=== PATIENT | female | born 1965 | race Caucasian/White ===

== ENCOUNTER 2018-11-06 21:00 | Emergency (ER) | payer MEDICARE ==
[~2018-11-06] VITALS: Ht 172.7 cm; Wt 115.0 kg
[~2018-11-06 21:00] MED LIST: BUPR100T6 PO; CHLORPROMAZINE 50 MG PO; DIAZ10TA PO; DULO60CA7 PO; ONDA4TAB7 PO; QUET400T4 PO; TOPI100T24 PO; ZOLP12.52 PO
--- NOTE | 2018-11-06 21:10 | NUR ---
BIB BY [facility] FOR INTERMITTENT EPIGASTRIC PAIN W/ NAUSEA X 12 HOURS. REPORTS HX OF "STOMACH ULCERS." [facility] PLACED PIV GAVE 300ML NS FOR B/P OF 80/50 AND 50MCG FENTANYL. ON ARRIVAL APPEARS WELL. B/P 105/60 REPORTS THIS IS HER BASELINE. RATES PAIN 6/10. HX OF JUANA/APPY/HYSTERECTOMY
[2018-11-06] MEDS ORDERED: ONDANSETRON 2MG/ML, 2ML IVPush ONE (21:30)
[2018-11-06] MEDS ORDERED: MORPHINE SULFATE 4 MG/ML, 1ML IVPush PRN (21:30)
--- NOTE | 2018-11-06 21:30 | NUR ---
PRIOR TO GETTING PATIENT UP TO RESTROOM-OFFERED ORDERED PAIN/NAUSEA MEDICINE- PATIENT DEFERRING AT THIS TIME. AMBULATED TO RESTROOM W/OUT DIFFICULTY. URINE VERY DARK & FOUL SMELLING.
[2018-11-06] MEDS ORDERED: ONDANSETRON 2MG/ML, 2ML ONE (22:18)
[2018-11-06] MEDS ORDERED: MORPHINE SULFATE 4 MG/ML, 1ML ONE (22:19)
--- NOTE | 2018-11-06 22:20 | NUR ---
PATIENT DEEPLY SLEEPING ON GURNEY. SIDE RAILS UP/CALL COLLINS IN HAND. COVERED WITH ADDITIONAL BLANKET. B/P REMAINS BORDERLINE-WILL CONTINUE TO MONITOR. MEDICATIONS PULLED BUT DEFERRED AGAIN AT THIS TIME PATIENT DEEP ASLEEP AND B/P SOFT. WILL CONTINUE TO MONITOR
[2018-11-06 22:40] LABS: BASOPHILS # (AUTO) 0.05 x10^3/uL (0-0.1); BASOPHILS % (AUTO) 0 % (0-1); EOSINOPHILS # (AUTO) 0.17 x10^3/uL (0-0.4); EOSINOPHILS % (AUTO) 1 % (1-7); LYMPHOCYTES # (AUTO) 2.54 x10^3/uL (1-3.4); LYMPHOCYTES % (AUTO) 20 % (22-44); MD NO; MEAN CORPUSCULAR HEMOGLOBIN 29.2 pg (27.0-34.8); MEAN CORPUSCULAR HGB CONC 34.1 g/dL (32.4-35.8); MEAN CORPUSCULAR VOLUME 85.6 fL (80-100); MEAN PLATELET VOLUME 9.5 fL (7.4-10.4); MONOCYTES # (AUTO) 0.41 x10^3/uL (0.2-0.8); MONOCYTES % (AUTO) 3 % (2-9); NEUTROPHILS # (AUTO) 9.38 x10^3/uL (1.8-6.8); NEUTROPHILS % (AUTO) 75 % (42-75); PLATELET COUNT 244 x10^3/uL (130-400); RED BLOOD COUNT 4.18 x10^6/uL (3.82-5.3); RED CELL DISTRIBUTION WIDTH 13.4 % (9.6-15.2)
[2018-11-06 22:47] LABS: ALANINE AMINOTRANSFERASE 24 U/L (12-78); ALBUMIN 3.4 g/dL (3.4-5.0); ANION GAP 6 mmol/L (5-15); CALCIUM 8.6 mg/dL (8.5-10.1); CHLORIDE 109 mmol/L (98-107); CREATININE 1.17 mg/dL (0.55-1.02)
[2018-11-06 22:52] LABS: ALKALINE PHOSPHATASE 133 U/L (45-117); BILIRUBIN,TOTAL 0.3 mg/dL (0.2-1.0); TROPONIN I < 0.015 ng/mL (0.000-0.045)
[2018-11-06 23:08] LABS: CULTURE INDICATED? YES; MICROSCOPIC INDICATED
[2018-11-06] MEDS ORDERED: CIPROFLOXACIN 500 MG TABLET ONE (23:29)
[2018-11-06] MEDS ORDERED: CIPROFLOXACIN 500 MG TABLET PO ONE (23:30)
[2018-11-06 23:34] VITALS: BP 96/58
== END 2018-11-06 23:37 | disposition home or self-care (01) ==
LOC: ED 23:31
DX: N30.00 Acute cystitis without hematuria (principal); R10.84 Generalized abdominal pain; Z90.49 Acquired absence of other specified parts of digestive tract; Z90.710 Acquired absence of both cervix and uterus; F31.9 Bipolar disorder, unspecified
CPT/HCPCS: 36415; 74022; 80053; 81001; 83690; 84484; 85025; 86677; 87077; 87086; 87186; 93005; 99284

== ENCOUNTER 2019-09-22 07:46 | Emergency (ER) | payer MEDICARE ==
[~2019-09-22] VITALS: Ht 172.7 cm; Wt 92.9 kg
[2019-09-22] MEDS ORDERED: LORazepam 1MG TABLET PO ONE (08:30)
[2019-09-22] MEDS ORDERED: LORazepam 1MG TABLET ONE (08:37)
[2019-09-22 10:07] VITALS: BP 93/65
--- NOTE | 2019-09-22 10:07 | NUR ---
TASK RN NOTE: REPORT FROM SIMON MURRELL. PT GIVEN DC INSTRUCTIONS AND SCRIPT, EDUCATED REGARDING RX FOR ATARAX. PT EDUCATED NOT TO DRIVE TODAY D/T MED GIVEN IN ED. PT A&O, RESPS EVEN AND UNLABORED, NO COMPLAINT AT DC. PT AMB TO DC DESK WITH STEADY GAIT, NADN.
== END 2019-09-22 10:08 | disposition home or self-care (01) ==
LOC: ED 08:51
DX: F41.1 Generalized anxiety disorder (principal)
CPT/HCPCS: 99283